=== PATIENT | female | born 1940 | race Caucasian/White ===

== ENCOUNTER 2017-06-02 20:21 | Inpatient (IN) | payer MEDICARE ==
[~2017-06-02] VITALS: Ht 160 cm; Wt 66.5 kg
[2017-06-02] MEDS ORDERED: TRIA1TAB5 PO (20:52)
[2017-06-02] MEDS ORDERED: OMEP40CA37 PO (20:52)
[2017-06-02] MEDS ORDERED: POTA10TA10 PO (20:52)
[2017-06-02] MEDS ORDERED: CYAN100097 PO (20:53)
[2017-06-02] MEDS ORDERED: temazepam 15mg capsule PO PRN (21:00)
[2017-06-02 21:47] LABS: BASOPHILS # (AUTO) 0.1 X10'3 (0-0.2); BASOPHILS % (AUTO) 0.4 % (0-1); EOSINOPHILS % (AUTO) 0 % (0-6); HEMATOCRIT 38.9 % (35.0-45.0); HEMOGLOBIN 13.2 g/dl (12.0-16.0); LYMPHOCYTES # (AUTO) 0.7 X10'3 (1.1-4.8); LYMPHOCYTES % (AUTO) 5.4 % (21-51); MEAN CORPUSCULAR HEMOGLOBIN 29.7 PG (27.0-31.0); MEAN CORPUSCULAR VOLUME 87.3 FL (78-98); MEAN PLATELET VOLUME 9.4 FL (7.4-10.4); MONOCYTES # (AUTO) 0.5 X10'3 (0-0.9); MONOCYTES % (AUTO) 3.6 % (2-12); NEUTROPHILS # (AUTO) 11.3 X10'3 (1.8-7.7); NEUTROPHILS % (AUTO) 90.6 % (42-75); PLATELET COUNT 254 X10'3 (140-440); RED BLOOD COUNT 4.46 X10'6 (4.20-5.60); RED CELL DISTRIBUTION WIDTH 14.2 % (11.5-14.5); WHITE BLOOD COUNT 12.4 X10'3 (4.5-11.0)
[2017-06-02] MEDS ORDERED: normal saline 1000ml 1,000 ML IV ONE (21:51)
[2017-06-02] MEDS ORDERED: normal saline 1000ML IV soln IVB ONE (21:55)
[2017-06-02 21:57] LABS: PROTHROMBIN TIME 10.2 SECONDS (9.0-12.0)
[2017-06-02 22:03] LABS: CLARITY,URINE CLOUDY (Clear); COLOR,URINE YELLOW (Yellow); GLUCOSE, URINE NEGATIVE (Neg); KETONES,URINE NEGATIVE (Neg); LEUKOCYTE ESTERASE ,URINE MODERATE (Neg); NITRITES, URINE NEGATIVE (Neg); OCCULT BLOOD,URINE MODERATE (Neg); PH,URINE 5.5 (4.8-8.0); PROTEIN,URINE 100 mg/dl (Neg); UROBILINOGEN,URINE 0.2 E.U/dL (0.2-1.0)
[2017-06-02 22:07] LABS: UA COLLECTION TYPE CLN CATCH MIDSTREAM
[2017-06-02 22:09] LABS: ALANINE AMINOTRANSFERASE 13 U/L (12-78); ALBUMIN 3.4 G/DL (3.4-5.0); ALBUMIN/GLOBULIN RATIO 0.7 (1.1-1.5); ALKALINE PHOSPHATASE 64 IU/L (46-116); ANION GAP 15 (8-16); ASPARTATE AMINO TRANSFERASE 15 U/L (10-37); BILIRUBIN,TOTAL 0.7 MG/DL (0.1-1.0); BLOOD UREA NITROGEN 25 MG/DL (7-18); BUN/CREATININE RATIO 9.9 (6.6-38.0); CALCIUM 9.5 MG/DL (8.5-10.1); CHLORIDE 100 MMOL/L (99-107); CREATININE 2.53 MG/DL (0.40-0.90); GLUCOSE 153 MG/DL (70-104); POTASSIUM 3.5 MMOL/L (3.5-5.1); SODIUM 138 MMOL/L (135-145); TOTAL CARBON DIOXIDE 23.5 MMOL/L (24-32); TOTAL PROTEIN 8.1 G/DL (6.4-8.2); eGFR 18 ML/MIN
[2017-06-02 22:18] LABS: BACTERIA,URINE 3+ /HPF (Neg); MUCUS STRANDS NONE SEEN /LPF (Neg); RBC,URINE 0-2 /HPF (0-2); SQUAMOUS EPITHELIAL CELL,UR MODERATE /LPF (FEW); WBC,URINE 50-100 /HPF (0-4)
[2017-06-02] MEDS ORDERED: CefTRIAXone 2gm/D5W 50ml 50 ML IV ONE (22:35)
[2017-06-02 22:42] LABS: CREATINE KINASE 192 U/L (26-192); MAGNESIUM 1.9 MG/DL (1.5-2.4)
[2017-06-02 22:50] LABS: MYOGLOBIN 1801 ng/ml (9-82)
[2017-06-02] MEDS ORDERED: bisacodyl 10mg suppository rectal RC PRN (22:55)
[2017-06-02] MEDS ORDERED: acetaminophen 325mg tablet PO PRN (22:55)
[2017-06-02] MEDS ORDERED: diphenhydrAMINE 50 mg/ml inj IV PRN (22:55)
[2017-06-02] MEDS ORDERED: HYDROcodone/acetaminophen 5mg/325mg tablet PO PRN (22:55)
[2017-06-02] MEDS ORDERED: acetaminophen 650mg rectal suppository RC PRN (22:55)
[2017-06-02] MEDS ORDERED: metoclopramide 5 mg/ml inj IV PRN (22:55)
[2017-06-02] MEDS ORDERED: HYDROcodone/acetaminophen 10/325mg tab PO PRN (22:55)
[2017-06-02] MEDS ORDERED: morphine 4 MG/ML inj SYRINge IV PRN ×2 (22:55)
[2017-06-02] MEDS ORDERED: diphenhydrAMINE 25mg capsule PO PRN (22:55)
[2017-06-02] MEDS ORDERED: ondansetron/PF 4mg/2ml inj IV PRN (22:55)
[2017-06-02] MEDS ORDERED: HYDROmorphone inj. 0.5 MG/0.5 ML DISP.SYRIN IV PRN ×2 (22:55)
[2017-06-02] MEDS ORDERED: magnesium hydroxide 30ml (MOM) UD suspension PO PRN (22:55)
[2017-06-02] MEDS ORDERED: mag hydrox/Alum hydrox/simeth 30ml oral suspension PO PRN (22:55)
[2017-06-02 23:00] LABS: LIPASE 64 U/L (73-393)
[2017-06-02 23:25] LABS: PHOSPHORUS 3.2 MG/DL (2.3-4.5)
[2017-06-03] MEDS ORDERED: normal saline 1000ML IV soln IVB ONE
[2017-06-03] MEDS: normal saline 1000ml 1,000 ML IV SCH ×3 (00:40→22:22)
[2017-06-03 04:41] LABS: BASOPHILS % (AUTO) 0.1 % (0-1); EOSINOPHILS # (AUTO) 0.1 X10'3 (0-0.9); EOSINOPHILS % (AUTO) 1.1 % (0-6); HEMATOCRIT 35.6 % (35.0-45.0); HEMOGLOBIN 12.2 g/dl (12.0-16.0); LYMPHOCYTES # (AUTO) 0.9 X10'3 (1.1-4.8); LYMPHOCYTES % (AUTO) 8.3 % (21-51); MEAN CORPUSCULAR HEMOGLOBIN 30.1 PG (27.0-31.0); MEAN CORPUSCULAR HGB CONC 34.2 % (33.0-36.5); MEAN PLATELET VOLUME 9.6 FL (7.4-10.4); MONOCYTES # (AUTO) 0.5 X10'3 (0-0.9); MONOCYTES % (AUTO) 4.8 % (2-12); NEUTROPHILS # (AUTO) 9.3 X10'3 (1.8-7.7); NEUTROPHILS % (AUTO) 85.7 % (42-75); PLATELET COUNT 239 X10'3 (140-440); RED BLOOD COUNT 4.04 X10'6 (4.20-5.60); RED CELL DISTRIBUTION WIDTH 14.4 % (11.5-14.5); WHITE BLOOD COUNT 10.9 X10'3 (4.5-11.0)
[2017-06-03 04:59] LABS: ALANINE AMINOTRANSFERASE 12 U/L (12-78); ALBUMIN 2.9 G/DL (3.4-5.0); ALBUMIN/GLOBULIN RATIO 0.7 (1.1-1.5); ALKALINE PHOSPHATASE 56 IU/L (46-116); ANION GAP 12 (8-16); ASPARTATE AMINO TRANSFERASE 21 U/L (10-37); BILIRUBIN,TOTAL 0.4 MG/DL (0.1-1.0); BLOOD UREA NITROGEN 27 MG/DL (7-18); BUN/CREATININE RATIO 11.3 (6.6-38.0); CALCIUM 8.4 MG/DL (8.5-10.1); CHLORIDE 105 MMOL/L (99-107); CHOL/HDL RATIO 3.2 (0.00-4.99); CHOLESTEROL 168 MG/DL (0-200); CREATININE 2.39 MG/DL (0.40-0.90); GLUCOSE 116 MG/DL (70-104); HDL CHOLESTEROL 52 MG/DL (35-60); LDL CHOLESTEROL 102 MG/DL (50-100); POTASSIUM 3.9 MMOL/L (3.5-5.1); SODIUM 142 MMOL/L (135-145); TOTAL CARBON DIOXIDE 25.4 MMOL/L (24-32); TOTAL PROTEIN 7.1 G/DL (6.4-8.2); TRIGLYCERIDES 73 MG/DL (20-135); eGFR 20 ML/MIN
[2017-06-03] MEDS ORDERED: sodium bicarbonate (8.4%) 1 mEq/ml syringe IV ONE (08:00)
[2017-06-03] MEDS: docusate sod 100mg capsule PO SCH ×2 (09:05→20:00)
[2017-06-03] MEDS: pantoprazole 40mg Tablet.DR PO SCH (09:05)
[2017-06-03] MEDS: potassium chloride 10mEq ER tablet PO SCH (09:05)
[2017-06-03] MEDS: nicotine 21mg patch - 24 hr TD SCH (09:06)
[2017-06-03] MEDS ORDERED: normal saline 1000ml 1,000 ML IVB ONE (09:41)
[2017-06-03 13:45] VITALS: BP 96/56
[2017-06-03 15:00] VITALS: BP 118/51
[2017-06-03 18:00] VITALS: BP 105/50
[2017-06-03 22:00] VITALS: BP 123/63
[2017-06-04 02:00] VITALS: BP 115/61
[2017-06-04] MEDS: normal saline 1000ml 1,000 ML IV SCH ×3 (04:52→21:40)
[2017-06-04 05:30] LABS: BASOPHILS % (AUTO) 0.5 % (0-1); EOSINOPHILS % (AUTO) 0.4 % (0-6); HEMATOCRIT 32.4 % (35.0-45.0); LYMPHOCYTES % (AUTO) 18.5 % (21-51); MEAN CORPUSCULAR HEMOGLOBIN 30.1 PG (27.0-31.0); MEAN CORPUSCULAR VOLUME 88.6 FL (78-98); MEAN PLATELET VOLUME 9.7 FL (7.4-10.4); MONOCYTES # (AUTO) 0.4 X10'3 (0-0.9); MONOCYTES % (AUTO) 7.8 % (2-12); NEUTROPHILS % (AUTO) 72.8 % (42-75); PLATELET COUNT 189 X10'3 (140-440); RED BLOOD COUNT 3.65 X10'6 (4.20-5.60); RED CELL DISTRIBUTION WIDTH 14.5 % (11.5-14.5); WHITE BLOOD COUNT 5.5 X10'3 (4.5-11.0)
[2017-06-04 06:00] VITALS: BP 127/62
[2017-06-04 06:23] LABS: ALANINE AMINOTRANSFERASE 12 U/L (12-78); ALBUMIN 2.2 G/DL (3.4-5.0); ALBUMIN/GLOBULIN RATIO 0.6 (1.1-1.5); ALKALINE PHOSPHATASE 43 IU/L (46-116); ANION GAP 12 (8-16); ASPARTATE AMINO TRANSFERASE 32 U/L (10-37); BILIRUBIN,TOTAL 0.3 MG/DL (0.1-1.0); BLOOD UREA NITROGEN 22 MG/DL (7-18); BUN/CREATININE RATIO 11.2 (6.6-38.0); CALCIUM 7.7 MG/DL (8.5-10.1); CHLORIDE 109 MMOL/L (99-107); CREATININE 1.96 MG/DL (0.40-0.90); GLUCOSE 91 MG/DL (70-104); SODIUM 143 MMOL/L (135-145); TOTAL CARBON DIOXIDE 22.3 MMOL/L (24-32); TOTAL PROTEIN 5.9 G/DL (6.4-8.2); TROPONIN I 0.08 NG/ML (0.0-0.05); eGFR 25 ML/MIN
[2017-06-04] MEDS: nicotine 21mg patch - 24 hr TD SCH (08:00)
[2017-06-04] MEDS ORDERED: potassium Cl 20 mEq SR tablet PO PRN (08:30)
[2017-06-04] MEDS ORDERED: potassium Cl 40MEQ/NS 500ml 500 ML IV PRN ×2 (08:30)
[2017-06-04] MEDS ORDERED: normal saline 500ml IV soln 500 ML IV ONE (08:35)
[2017-06-04] MEDS: pantoprazole 40mg Tablet.DR PO SCH (08:38)
[2017-06-04] MEDS: potassium chloride 10mEq ER tablet PO SCH (08:38)
[2017-06-04] MEDS: docusate sod 100mg capsule PO SCH ×2 (08:38→19:22)
[2017-06-04] MEDS: aspirin 81mg tab.chew PO SCH (08:38)
[2017-06-04 10:00] LABS: MAGNESIUM 1.6 MG/DL (1.5-2.4); TROPONIN I 0.06 NG/ML (0.0-0.05)
[2017-06-04 10:11] LABS: CLARITY,URINE SLIGHTLY CLOUDY (Clear); COLOR,URINE STRAW (Yellow); GLUCOSE, URINE NEGATIVE (Neg); KETONES,URINE NEGATIVE (Neg); LEUKOCYTE ESTERASE ,URINE SMALL (Neg); NITRITES, URINE NEGATIVE (Neg); OCCULT BLOOD,URINE SMALL (Neg); PH,URINE 5.5 (4.8-8.0); PROTEIN,URINE NEGATIVE (Neg); UROBILINOGEN,URINE 0.2 E.U/dL (0.2-1.0)
[2017-06-04 10:18] LABS: UA COLLECTION TYPE CLN CATCH MIDSTREAM
[2017-06-04 10:24] LABS: COARSE GRANULAR CAST 0-3 /LPF (NEGATIVE); MUCUS STRANDS FEW /LPF (Neg); SQUAMOUS EPITHELIAL CELL,UR MODERATE /LPF (FEW); TRANSITIONAL EPI CELLS,URINE FEW /HPF
[2017-06-04 10:25] LABS: RBC,URINE 0-2 /HPF (0-2)
[2017-06-04 10:26] LABS: BACTERIA,URINE FEW /HPF (Neg)
[2017-06-04] MEDS: CefTRIAXone/D5W-Rocephin 1gm 50 ML IV SCH (10:28)
[2017-06-04 11:00] VITALS: BP 112/58
[2017-06-04] MEDS: potassium Cl 20 mEq SR tablet PO PRN ×3 (14:07→23:39)
[2017-06-04 15:00] VITALS: BP 124/70
[2017-06-04 19:00] VITALS: BP 133/43
[2017-06-04] MEDS: lactobacillus rhamnosus 10,000 MMU CELLS/CAPSULE PO SCH (19:22)
[2017-06-04 22:00] VITALS: BP 132/65
[2017-06-05 02:00] VITALS: BP 150/76
[2017-06-05 05:17] LABS: BASOPHILS % (AUTO) 0.6 % (0-1); EOSINOPHILS % (AUTO) 0.6 % (0-6); HEMATOCRIT 30.5 % (35.0-45.0); HEMOGLOBIN 10.4 g/dl (12.0-16.0); LYMPHOCYTES % (AUTO) 18.3 % (21-51); MEAN CORPUSCULAR HEMOGLOBIN 29.8 PG (27.0-31.0); MEAN CORPUSCULAR HGB CONC 34.3 % (33.0-36.5); MEAN CORPUSCULAR VOLUME 86.9 FL (78-98); MEAN PLATELET VOLUME 9.8 FL (7.4-10.4); MONOCYTES # (AUTO) 0.6 X10'3 (0-0.9); MONOCYTES % (AUTO) 12.4 % (2-12); NEUTROPHILS # (AUTO) 3.5 X10'3 (1.8-7.7); NEUTROPHILS % (AUTO) 68.1 % (42-75); PLATELET COUNT 176 X10'3 (140-440); RED CELL DISTRIBUTION WIDTH 14.6 % (11.5-14.5); WHITE BLOOD COUNT 5.2 X10'3 (4.5-11.0)
[2017-06-05 05:24] LABS: ALANINE AMINOTRANSFERASE 16 U/L (12-78); ALBUMIN/GLOBULIN RATIO 0.6 (1.1-1.5); ALKALINE PHOSPHATASE 40 IU/L (46-116); ANION GAP 7 (8-16); ASPARTATE AMINO TRANSFERASE 28 U/L (10-37); BILIRUBIN,TOTAL 0.2 MG/DL (0.1-1.0); BLOOD UREA NITROGEN 18 MG/DL (7-18); BUN/CREATININE RATIO 11.5 (6.6-38.0); CALCIUM 7.6 MG/DL (8.5-10.1); CHLORIDE 111 MMOL/L (99-107); CREATININE 1.56 MG/DL (0.40-0.90); GLUCOSE 93 MG/DL (70-104); POTASSIUM 4.1 MMOL/L (3.5-5.1); SODIUM 140 MMOL/L (135-145); TOTAL CARBON DIOXIDE 22.4 MMOL/L (24-32); TOTAL PROTEIN 5.6 G/DL (6.4-8.2); eGFR 32 ML/MIN
[2017-06-05 06:00] VITALS: BP 142/49
[2017-06-05] MEDS: pantoprazole 40mg Tablet.DR PO SCH (07:06)
[2017-06-05] MEDS: CefTRIAXone/D5W-Rocephin 1gm 50 ML IV SCH (07:07)
[2017-06-05] MEDS: docusate sod 100mg capsule PO SCH (07:12)
[2017-06-05] MEDS: aspirin 81mg tab.chew PO SCH (07:58)
[2017-06-05] MEDS: nicotine 21mg patch - 24 hr TD SCH (07:58)
[2017-06-05] MEDS: potassium chloride 10mEq ER tablet PO SCH (07:59)
[2017-06-05] MEDS: lactobacillus rhamnosus 10,000 MMU CELLS/CAPSULE PO SCH (07:59)
[2017-06-05] MEDS ORDERED: K and/or MAG REPLACEMENT MC SCH (08:00)
[2017-06-05 11:00] VITALS: BP 125/45
[2017-06-05] MEDS: normal saline 1000ml 1,000 ML IV SCH (11:32)
[2017-06-05] MEDS ORDERED: CEPH250T PO (12:33)
== END 2017-06-05 14:18 | disposition home or self-care (01) | DRG 872 ==
LOC: ER 20:22 → EDSEX 20:22 → ED HOLD 22:52 → PCU 3S 06-03 13:15
PROVIDERS: ADMIT Family Medicine; ATTEND Family Medicine
DX: A41.9 Sepsis, unspecified organism (principal); N17.9 Acute kidney failure, unspecified; M62.82 Rhabdomyolysis; E86.0 Dehydration; N12 Tubulo-interstitial nephritis, not specified as acute or chronic; R55 Syncope and collapse; R74.8 Abnormal levels of other serum enzymes; I10 Essential (primary) hypertension; J44.9 Chronic obstructive pulmonary disease, unspecified; K21.9 Gastro-esophageal reflux disease without esophagitis; Z72.0 Tobacco use; Z90.710 Acquired absence of both cervix and uterus; Z88.8 Allergy status to other drugs, medicaments and biological substances; Z88.2 Allergy status to sulfonamides; Z79.899 Other long term (current) drug therapy; Z85.038 Personal history of other malignant neoplasm of large intestine
CPT/HCPCS: 36415; 71045; 71250; 74176; 80053; 80061; 81001; 82550; 83036; 83605; 83690; 83735; 83874; 83880; 84100; 84145; 84443; 84484; 85025; 85610; 87040; 87070; 87077; 87088; 87186; 93005; 93306; 99291; J0696; J7030

== ENCOUNTER 2024-07-29 16:09 | Emergency (ER) | payer MEDICARE ==
[~2024-07-29] VITALS: Ht 160 cm; Wt 59.4 kg
[~2024-07-29 16:09] MED LIST: CYAN-36 PO; OMEP40CA21 PO
[2024-07-29 16:21] VITALS: BP 149/65; PULSE 64; RESP 18; TEMP 97.3; O2SAT 100
--- NOTE | 2024-07-29 16:36 | Physician Documentation ---
History of Present Illness ~ Chief Complaint: Weakness Stated Complaint: "KIDNEY PROBLEMS" OK to notify your PCP?: Yes Primary Medical Doctor: Clarence Mason HPI This 84-year-old female presents with generalized weakness, patient reports that she has been dealing with abnormal labs through her primary care provider for the last several weeks unable to specify which labs were abnormal in triage. Medication Reconciliation Allergies: Coded Allergies: amlodipine (Verified Allergy, Unknown, 07/29/24) atorvastatin (Verified Allergy, Unknown, 07/29/24) benazepril (Verified Allergy, Unknown, 07/29/24) buspirone (Verified Allergy, Unknown, 07/29/24) ciprofloxacin (Verified Allergy, Unknown, 07/29/24) estrogens, conjugated (Verified Allergy, Unknown, 07/29/24) lovastatin (Verified Allergy, Unknown, 06/02/17) simvastatin (Verified Allergy, Unknown, 06/02/17) sulfamethoxazole (Verified Allergy, Unknown, 06/02/17) trimethoprim (Verified Allergy, Unknown, 06/02/17) Scheduled Cyanocobalamin (Vitamin B-12) (B-12), 1 TAB PO Q2D, (Reported) Omeprazole (Prilosec), 1 CAP PO DAILY, (Reported) Past Medical History Past Medical History: Hypertension, GERD, Colon Cancer Past Surgical History: noncontributory, appendectomy, cancer surgery, hysterectomy Other Past Surgical History: cataract surgery Alcohol Use: None Drug Use: none Lives In: Home Review of Systems ROS As stated above in the HPI, otherwise all systems are reviewed and negative. Physical Exam Vital Signs: Temperature: 97.3, Source: Temporal, Heart Rate: 64, Respiratory Rate: 18, BP: 149/65, Pulse Oximetry: 100, Weight: 59.350 Physical Exam VITALS: Reviewed and as above. GENERAL: Alert, nontoxic appearing, no apparent distress. RESPIRATORY: No increased work of breathing, no respiratory distress, speaking in full clear sentences Progress Results/Orders Results/Orders Laboratory Tests Test 07/29/24 16:50 White Blood Count 11.0 Red Blood Count 4.32 Hemoglobin 12.7 Hematocrit 38.3 Mean Corpuscular Volume 88.8 Mean Corpuscular Hemoglobin 29.4 Mean Corpuscular Hemoglobin Concent 33.1 Red Cell Distribution Width 14.4 Platelet Count 288 Mean Platelet Volume 9.9 Neutrophils (%) (Auto) 73.0 Lymphocytes (%) (Auto) 20.1 L Monocytes (%) (Auto) 5.2 Eosinophils (%) (Auto) 1.0 Basophils (%) (Auto) 0.7 Neutrophils # (Auto) 8.0 H Lymphocytes # (Auto) 2.2 Monocytes # (Auto) 0.6 Eosinophils # (Auto) 0.1 Basophils # (Auto) 0.1 CBC Comment Sodium Level 144 Potassium Level 3.3 L Chloride Level 105 Carbon Dioxide Level 29.4 Anion Gap 10 Blood Urea Nitrogen 22 H Creatinine 1.60 H Estimated GFR/1.73 m2 31 BUN/Creatinine Ratio 13.8 Glucose Level 92 Calcium Level 8.8 Total Bilirubin 0.4 Aspartate Amino Transf (AST/SGOT) 13 Alanine Aminotransferase (ALT/SGPT) 14 Alkaline Phosphatase 77 Total Protein 7.6 Albumin 3.6 Globulin 4.0 Albumin/Globulin Ratio 0.9 L Amylase Level 63 Lipase 51 Chemistry Comments Medical Decision Making Findings MSE performed in triage and patient returned to ED lobby by nursing staff to await available ED room, patient appears to have eloped Differential Dx:Considerations: Include: anemia, dehydration, electrolyte imbalance, hypoglycemia, hypotension Departure Disposition: LEFT AWOL/ELOPED Impression: Primary Impression: Hypokalemia Condition: Guarded Referrals: NO PRIMARY CARE PROVIDER (PCP) Additional Comment Medical Screen Exam History: This 84-year-old female presents with generalized weakness, patient reports that she has been dealing with abnormal labs through her primary care provider for the last several weeks unable to specify which labs were abnormal in triage. Exam: VITALS: Reviewed and as above. GENERAL: Alert, nontoxic appearing, no apparent distress. RESPIRATORY: No increased work of breathing, no respiratory distress, speaking in full clear sentences MSE performed in triage and patient returned to ED lobby by nursing staff The note accurately reflects work and decisions made by me.EMMETT Sin 07/29/24 16:36 Signature Scribe Signature: No scribe Attestation: The note accurately reflects work and decisions made by me.EMMETT Sin 08/04/24 22:27 OLIVIER STINSON Jul 29, 2024 16:36
[2024-07-29 17:13] LABS: BASOPHILS # (AUTO) 0.1 X10'3 (0-0.2); BASOPHILS % (AUTO) 0.7 % (0-1); EOSINOPHILS # (AUTO) 0.1 X10'3 (0-0.9); HEMATOCRIT 38.3 % (35.0-45.0); HEMOGLOBIN 12.7 g/dl (12.0-16.0); LYMPHOCYTES # (AUTO) 2.2 X10'3 (1.1-4.8); LYMPHOCYTES % (AUTO) 20.1 % (21-51); MEAN CORPUSCULAR HEMOGLOBIN 29.4 PG (27.0-31.0); MEAN CORPUSCULAR HGB CONC 33.1 g/dL (33.0-36.5); MEAN CORPUSCULAR VOLUME 88.8 FL (78-98); MEAN PLATELET VOLUME 9.9 FL (7.4-10.4); MONOCYTES # (AUTO) 0.6 X10'3 (0-0.9); MONOCYTES % (AUTO) 5.2 % (2-12); PLATELET COUNT 288 X10'3 (140-440); RED BLOOD COUNT 4.32 X10'6 (4.20-5.60); RED CELL DISTRIBUTION WIDTH 14.4 % (11.5-14.5)
[2024-07-29 17:52] LABS: ANION GAP 10 (8-16); BLOOD UREA NITROGEN 22 MG/DL (7-18); BUN/CREATININE RATIO 13.8 (10.0-20.0); CHLORIDE 105 MMOL/L (99-107); GLUCOSE 92 MG/DL (70-104); POTASSIUM 3.3 MMOL/L (3.5-5.1); SODIUM 144 MMOL/L (135-145); TOTAL CARBON DIOXIDE 29.4 MMOL/L (24-32)
[2024-07-29 17:53] LABS: ALANINE AMINOTRANSFERASE 14 U/L (12-78); ALBUMIN 3.6 G/DL (3.4-5.0); ALBUMIN/GLOBULIN RATIO 0.9 (1.1-1.5); ALKALINE PHOSPHATASE 77 IU/L (46-116); AMYLASE 63 U/L (25-115); ASPARTATE AMINO TRANSFERASE 13 U/L (10-37); BILIRUBIN,TOTAL 0.4 MG/DL (0.1-1.0); CALCIUM 8.8 MG/DL (8.5-10.1); LIPASE 51 U/L (16-77); TOTAL PROTEIN 7.6 G/DL (6.4-8.2); eCRCL 21 ML/MIN; eGFR 31 ML/MIN
== END 2024-07-29 22:13 | disposition left against medical advice (07) ==
LOC: ER 16:10
DX: R53.1 Weakness (principal); I10 Essential (primary) hypertension; K21.9 Gastro-esophageal reflux disease without esophagitis; Z85.038 Personal history of other malignant neoplasm of large intestine; Z88.1 Allergy status to other antibiotic agents; Z88.2 Allergy status to sulfonamides; Z88.8 Allergy status to other drugs, medicaments and biological substances; Z90.49 Acquired absence of other specified parts of digestive tract; Z90.710 Acquired absence of both cervix and uterus
CPT/HCPCS: 36415; 80053; 82150; 83690; 85025; 99283